=== PATIENT | female | born 1955 ===

== ENCOUNTER 2023-07-14 10:40 | Emergency (ER) | payer MEDICARE, SELFPAY ==
[2023-07-14 10:47] VITALS: BP 169/85; PULSE 75; RESP 16; TEMP 36.1; O2SAT 98; BMI 25.7
--- NOTE | 2023-07-14 11:08 | ED.GENADULT ---
HPI - General Adult General Chief complaint: Burn/Smoke Inhalation Stated complaint: Burn Time Seen by Provider: 07/14/23 11:07 Source: patient Mode of arrival: ambulatory Limitations: no limitations History of Present Illness HPI narrative: Patient is a 60-year-old female with history of breast cancer presenting to the emergency department with complaint of burn to left thigh/groin area. States that she accidentally spilled hot coffee on herself this morning while on her way to visit her mother. She is currently visiting here for a few days from [place] and is returning to [place] on Friday. She is unsure of last tetanus vaccine. Denies any other injuries. complaint: burn Onset (ago): hour(s) Location: left and lower extremity Severity: moderate Quality: burning Pain Consistency: constant Relieving factors: rest Exacerbating factors: movement Associated symptoms: denies other symptoms Treatments prior to arrival: none Related Data Allergies Allergy/AdvReac Type Severity Reaction Status Date / Time aspirin Allergy Anaphylaxis Verified 07/14/23 10:50 Penicillins Allergy Anaphylaxis Verified 07/14/23 10:50 Review of Systems Review of Systems: As per HPI. Yes all other systems are reviewed and are negative Constitutional: Constitutional: Reports as per HPI [facility] Social History Social History Smoked in Last 30 Days: No Use of substances other than those prescribed or required for medical reasons: No Advance Directives: No Advance Directives Information Provided: Yes Do you have a plan to hurt others: No Plan Physical Exam ED Vital Signs: Vital Signs - 24 hr 07/14/23 10:47 Temperature 97.0 F Pulse Rate 75 Respiratory Rate 16 Blood Pressure 169/85 H Pulse Oximetry 98 Oxygen Delivery Method Room Air BMI result Body Mass Index 25.7 Vital signs have been reviewed and appear to be correct. Blood pressure elevated. Heart rate normal. Respiratory rate normal. Temperature normal. Oxygen saturation normal. Const General: cooperative, healthy appearing and no acute distress Orientation/consciousness: oriented to person, oriented to place, oriented to time and patient oriented x3 Limitations: no limitations HENMT Head: Yes normocephalic and Yes atraumatic Ears: external ears normal General nose exam: Normal external nose present Face and sinus: Yes face symmetric Mouth: oropharynx normal and moist mucous membranes Throat: Yes uvula midline Eyes Pupils: Equal, round and reactive pupils present Neck Neck: Yes normal visual inspection and Yes supple Resp Effort & Inspection: normal respiratory effort and able to speak in complete sentences Auscultation: clear to auscultation bilaterally Cardio Rate: regular rate Rhythm: regular rhythm Heart sounds: S1 normal heart sound present and S2 normal heart sound present GI Palpation (GI): Soft to palpation and nontender Auscultation: normoactive bowel sounds General: Yes no CVA tenderness Back/Spine/Pelvis Back: no CVA tenderness Skin Other: General skin exam: elasticity normal and turgor normal Trauma: other (superficial partial thickness burn with bullae to anterior L proximal thigh) Neuro General: oriented to person, oriented to place, oriented to time, patient oriented x3, moves all extremities, no focal motor deficits and CN's II-XI intact bilaterally Cranial nerves: Yes Equal, round and reactive pupils present Cognition (Neuro): normal cognition Extrem General: Yes full ROM, Yes no pedal edema and Yes no calf tenderness Psych Mental Status: mental status grossly normal Affect: normal affect Thought process: Normal thought process present Medical Decision Making Medical Decision Making MDM Narrative: Patient is a 60-year-old female with history of breast cancer presenting to the emergency department with complaint of burn to left thigh/groin area. On exam patient is awake, A+Ox3, BP elevated, VS otherwise WNL, afebrile, normal neurological exam without focal deficits, physical exam findings as above. Given reported symptoms and physical exam findings, initial differential includes burn, cellulitis. Wound is <10% BSA superficial partial thickness with intact bullae. She denies any history of diabetes. Bacitracin applied, then wound dressed with Xeroform gauze and wrapped with Kerlix. Tdap updated. Discussed with patient the importance of changing the dressing and assessing the wound daily for signs of infection and to return or go to nearest emergency department if this occurs. Instructed patient to follow-up with her primary care provider once she has returned to [place]. Patient verbalized understanding of and agreement with plan. Differential Diagnosis Differential Diagnoses: The differential diagnosis associated with the presentation includes As per MDM. External Record Review External record reviewed: Inpatient record, Office record and Outpatient record Prescription Management I considered prescription management with: Antibiotic and Other Discharge Plan Discharge Clinical Impression: Burn of left thigh Qualifiers: Encounter type: initial encounter Burn degree: partial thickness (2nd degree) Qualified Code(s): T24.212A - Burn of second degree of left thigh, initial encounter Patient Disposition: Home, Self-Care Instructions: Second Degree Burn (ED), Superficial Burn (DC), Diphtheria/Acellular Pertussis/Tetanus Booster Vaccine (By injection) Additional Instructions: You were evaluated in the emergency department today for a burn to your left thigh. Your tetanus vaccine (Tdap) was updated at today's visit. A dressing was applied in the emergency department, please leave this dressing in place for the next 24 hours. After that, you should change the dressing daily and assess for signs of infection. You should avoid extremes in temperature when showering. Do not attempt to puncture or rupture the blisters. We recommend that you take 650 mg Tylenol or 600 mg ibuprofen every 6 hours as needed for pain. Return to the emergency department if you develop new redness, swelling, thick yellow drainage, fever or any other concerning symptoms. Please follow-up with your primary care provider. Print Language: French
[2023-07-14] MEDS: Bacitracin Oint 0.9 GM PACKET 1 APPL TOPICAL (12:59)
[2023-07-14] MEDS: Diphth,Pertus(ACell),Tet Adult 0.5 ML SYRINGE IM (12:59)
[2023-07-14 13:06] VITALS: BP 167/88; PULSE 58; RESP 18; TEMP 36.1; O2SAT 97
== END 2023-07-14 13:07 | disposition home or self-care (01) ==
PROVIDERS: Emergency Provider Emergency Medicine
DX: T24.212A Burn of second degree of left thigh, initial encounter (principal); S70.312A Abrasion, left thigh, initial encounter; T31.0 Burns involving less than 10% of body surface; X12.XXXA Contact with other hot fluids, initial encounter; Y93.9 Activity, unspecified; Y92.9 Unspecified place or not applicable; Y99.8 Other external cause status; Z23 Encounter for immunization
CPT/HCPCS: 16025; 90471; 90715; 99283; 99284